=== PATIENT | female | born 1930 | race African-American/Black ===

== ENCOUNTER 2018-08-20 19:12 | Inpatient (IN) ==
[2018-08-20] MEDS ORDERED: ASPIRIN 325 MG TABLET PO STA (19:39)
[2018-08-20] MEDS ORDERED: ENOXAPARIN 80 MG/0.8 ML SYRINGE SUBCUT STA (21:43)
[2018-08-20 22:02] LABS: Albumin 2.9 G/DL (3.4-5.0); Bilirubin,Total 0.5 MG/DL (0.2-1.0); Calcium 8.9 MG/DL (8.5-10.1); Osmolality,Calculated 282.3 MOS/KG (273-304); Potassium 3.5 MMOL/L (3.5-5.1); Total Protein 6.5 G/DL (6.4-8.3)
[2018-08-20 22:15] LABS: Basophils % 0.5 % (0.0-0.8); Eosinophils # 0.1 10*3/uL (0.0-0.87); Eosinophils % 0.6 % (0.00-10.9); Hematocrit 43.7 VOL% (35.7-47.0); Hemoglobin 14.3 GM/DL (12.0-16.0); Immature Granulocytes % 0.8 %; Immature Granulocytes Absolute 0.07 #; Lymphocytes # 1.6 10*3/uL (1.4-4.0); Lymphocytes % 19.2 % (21.3-54.2); Mean Corpuscular HGB Conc 32.7 GM/DL (32-36); Mean Corpuscular Hemoglobin 29 PG (27-34); Mean Corpuscular Volume 87.9 FL (87-102); Mean Platelet Volume 9.8 FL (9.6-12.0); Monocytes # 0.8 10*3/uL (0.11-0.8); Monocytes % 9.6 % (1.7-12.7); Neutrophils # 5.7 10*3/uL (1.4-7.4); Neutrophils % 69.3 % (38.7-73.9); Platelet Count 359 T/CUMM (130-400); Red Blood Count 4.97 MC/CUMM (3.8-5.5); Red Cell Distribution Width 14.4 % (9.3-17.3); White Blood Count 8.3 T/CUMM (4-12)
[2018-08-20 22:41] LABS: INR 1.1; PT Patient Result 11.4 SECS; Partial Thromboplastin Time 25.3 SECS (0-40)
[2018-08-21] MEDS ORDERED: ACETAMINOPHEN 325 MG TABLET PO PRN (00:24)
[2018-08-21] MEDS ORDERED: DEXTROSE 50% 25 GM/50 ML SYRINGE IV PRN (00:24)
[2018-08-21] MEDS ORDERED: DOCUSATE SODIUM 100 MG CAPSULE PO PRN (00:24)
[2018-08-21] MEDS ORDERED: diphenhydrAMINE CAP 25 MG CAPSULE PO PRN (00:24)
[2018-08-21] MEDS ORDERED: GLUCAGON 1 MG VIAL IM PRN (00:24)
[2018-08-21] MEDS ORDERED: MAGNESIUM SULF RIDER 2 GM in PREMIX 1 EACH IV PRN (00:24)
[2018-08-21] MEDS ORDERED: MORPHINE 4 MG/1 ML VIAL IV PRN (00:24)
[2018-08-21] MEDS ORDERED: ONDANSETRON 4 MG/2 ML VIAL IV PRN (00:24)
[2018-08-21] MEDS ORDERED: MAGNESIUM SULF RIDER 4 GM in PREMIX 1 EACH IV PRN (00:24)
[2018-08-21] MEDS ORDERED: METOPROLOL TARTRATE 5 MG/5 ML VIAL IV ONE ×2 (00:30→04:05)
[2018-08-21] MEDS: SODIUM CHLORIDE 0.9% 1,000 ML IV SCH (01:16)
[2018-08-21 05:19] LABS: Basophils # 0.1 10*3/uL (0.0-0.2); Basophils % 0.8 % (0.0-0.8); Eosinophils # 0.1 10*3/uL (0.0-0.87); Eosinophils % 1.1 % (0.00-10.9); Hematocrit 42.2 VOL% (35.7-47.0); Hemoglobin 13.2 GM/DL (12.0-16.0); Immature Granulocytes % 0.4 %; Immature Granulocytes Absolute 0.03 #; Lymphocytes # 1.6 10*3/uL (1.4-4.0); Lymphocytes % 22.1 % (21.3-54.2); Mean Corpuscular HGB Conc 31.3 GM/DL (32-36); Mean Corpuscular Hemoglobin 28 PG (27-34); Mean Corpuscular Volume 88.8 FL (87-102); Mean Platelet Volume 9.7 FL (9.6-12.0); Monocytes # 0.7 10*3/uL (0.11-0.8); Monocytes % 9.1 % (1.7-12.7); Neutrophils # 4.7 10*3/uL (1.4-7.4); Neutrophils % 66.5 % (38.7-73.9); Platelet Count 356 T/CUMM (130-400); Red Blood Count 4.75 MC/CUMM (3.8-5.5); Red Cell Distribution Width 14.1 % (9.3-17.3); White Blood Count 7.1 T/CUMM (4-12)
[2018-08-21 06:09] LABS: Calcium 8.8 MG/DL (8.5-10.1); Osmolality,Calculated 282.4 MOS/KG (273-304); Potassium 3.3 MMOL/L (3.5-5.1); Risk Ratio 3.08; Thyroid Stimulating Hormone 1.35 uIU/ml (0.358-3.74); VLDL CHOLESTEROL 16.4 MG/DL
[2018-08-21] MEDS ORDERED: POTASSIUM CHLORIDE 20 MEQ TABLET PO PRN (07:51)
[2018-08-21] MEDS: ATORVASTATIN 40 MG TABLET PO SCH (08:34)
[2018-08-21] MEDS: PANTOPRAZOLE 40 MG TABLET PO SCH (08:34)
[2018-08-21] MEDS: ASPIRIN EC 81 MG TABLET PO SCH (08:34)
[2018-08-21] MEDS: INSULIN REGULAR 100 UNIT/ML SUBCUT SCH ×4 (08:35→21:08)
[2018-08-21] MEDS: METOPROLOL TARTRATE 25 MG TABLET PO SCH ×2 (08:41→21:08)
[2018-08-21] MEDS: ENOXAPARIN 80 MG/0.8 ML SYRINGE SUBCUT SCH ×2 (13:15→22:00)
[2018-08-21] MEDS ORDERED: DIGOXIN 0.5 MG/2 ML AMP IV ONE (15:38)
[2018-08-21] MEDS ORDERED: ENOXAPARIN 80 MG/0.8 ML SYRINGE SUBCUT SCH (21:00)
[2018-08-21] MEDS: traMADol 50 MG TABLET PO SCH (21:08)
[2018-08-21] MEDS: GABAPENTIN 100 MG CAPSULE PO SCH (21:08)
[2018-08-21] MEDS: clonazePAM 0.5 MG TABLET PO SCH (21:08)
[2018-08-22 05:37] LABS: Basophils # 0.1 10*3/uL (0.0-0.2); Basophils % 1.1 % (0.0-0.8); Eosinophils # 0.1 10*3/uL (0.0-0.87); Hematocrit 42.5 VOL% (35.7-47.0); Hemoglobin 13.4 GM/DL (12.0-16.0); Immature Granulocytes % 0.6 %; Immature Granulocytes Absolute 0.05 #; Lymphocytes % 24.2 % (21.3-54.2); Mean Corpuscular HGB Conc 31.5 GM/DL (32-36); Mean Corpuscular Hemoglobin 28 PG (27-34); Mean Platelet Volume 9.9 FL (9.6-12.0); Monocytes # 0.8 10*3/uL (0.11-0.8); Monocytes % 9.8 % (1.7-12.7); Neutrophils # 5.3 10*3/uL (1.4-7.4); Neutrophils % 63.3 % (38.7-73.9); Platelet Count 375 T/CUMM (130-400); Red Blood Count 4.72 MC/CUMM (3.8-5.5); Red Cell Distribution Width 14.1 % (9.3-17.3); White Blood Count 8.3 T/CUMM (4-12)
[2018-08-22 06:03] LABS: Calcium 8.5 MG/DL (8.5-10.1); Osmolality,Calculated 282.1 MOS/KG (273-304)
[2018-08-22] MEDS ORDERED: POTASSIUM CHLORIDE 10 MEQ TABLET PO SCH (09:00)
[2018-08-22] MEDS ORDERED: METOPROLOL TARTRATE 50 MG TABLET PO SCH (09:53)
[2018-08-22] MEDS: PANTOPRAZOLE 40 MG TABLET PO SCH (10:46)
[2018-08-22] MEDS: FUROSEMIDE 40 MG TABLET PO SCH (10:46)
[2018-08-22] MEDS: MAGNESIUM OXIDE 400 MG TABLET PO SCH (10:46)
[2018-08-22] MEDS: clonazePAM 0.5 MG TABLET PO SCH ×2 (10:47→21:11)
[2018-08-22] MEDS: GABAPENTIN 100 MG CAPSULE PO SCH ×2 (10:47→21:11)
[2018-08-22] MEDS: ASPIRIN EC 81 MG TABLET PO SCH (10:47)
[2018-08-22] MEDS: POTASSIUM CHLORIDE 20 MEQ TABLET PO SCH (10:48)
[2018-08-22] MEDS: ATORVASTATIN 40 MG TABLET PO SCH (10:48)
[2018-08-22] MEDS: CETIRIZINE 10 MG TABLET PO SCH (10:48)
[2018-08-22] MEDS: traMADol 50 MG TABLET PO SCH ×2 (10:49→21:11)
[2018-08-22] MEDS: ASCORBIC ACID 500 MG TABLET PO SCH ×2 (10:52→21:11)
[2018-08-22] MEDS: ENOXAPARIN 80 MG/0.8 ML SYRINGE SUBCUT SCH ×2 (10:52→22:04)
[2018-08-22] MEDS: INSULIN REGULAR 100 UNIT/ML SUBCUT SCH ×4 (13:24→20:53)
[2018-08-22] MEDS ORDERED: METOPROLOL TARTRATE 25 MG TABLET PO ONE (15:55)
[2018-08-22] MEDS: METOPROLOL TARTRATE 25 MG TABLET PO SCH (19:22)
[2018-08-22] MEDS: SODIUM CHLORIDE 0.9% 1,000 ML IV SCH (19:23)
[2018-08-22] MEDS ORDERED: METOPROLOL TARTRATE 50 MG TABLET PO ONE (23:55)
[2018-08-23 06:18] LABS: Basophils # 0.1 10*3/uL (0.0-0.2); Eosinophils # 0.1 10*3/uL (0.0-0.87); Eosinophils % 1.4 % (0.00-10.9); Hematocrit 43.4 VOL% (35.7-47.0); Hemoglobin 13.7 GM/DL (12.0-16.0); Immature Granulocytes % 0.6 %; Immature Granulocytes Absolute 0.04 #; Lymphocytes # 1.8 10*3/uL (1.4-4.0); Lymphocytes % 25.2 % (21.3-54.2); Mean Corpuscular HGB Conc 31.6 GM/DL (32-36); Mean Corpuscular Hemoglobin 28 PG (27-34); Monocytes # 0.7 10*3/uL (0.11-0.8); Monocytes % 10.2 % (1.7-12.7); Neutrophils # 4.4 10*3/uL (1.4-7.4); Neutrophils % 61.6 % (38.7-73.9); Red Blood Count 4.82 MC/CUMM (3.8-5.5); Red Cell Distribution Width 14.3 % (9.3-17.3); White Blood Count 7.1 T/CUMM (4-12)
[2018-08-23 06:21] LABS: Platelet Count 216 T/CUMM (130-400)
[2018-08-23 06:30] LABS: Calcium 8.2 MG/DL (8.5-10.1); Osmolality,Calculated 279.7 MOS/KG (273-304); Potassium 4.1 MMOL/L (3.5-5.1)
[2018-08-23] MEDS: clonazePAM 0.5 MG TABLET PO SCH ×2 (08:32→21:52)
[2018-08-23] MEDS: FUROSEMIDE 40 MG TABLET PO SCH (08:32)
[2018-08-23] MEDS: GABAPENTIN 100 MG CAPSULE PO SCH ×2 (08:32→21:52)
[2018-08-23] MEDS: traMADol 50 MG TABLET PO SCH ×2 (08:34→21:53)
[2018-08-23] MEDS: ASCORBIC ACID 500 MG TABLET PO SCH ×2 (08:34→21:52)
[2018-08-23] MEDS: ATORVASTATIN 40 MG TABLET PO SCH (08:34)
[2018-08-23] MEDS: ASPIRIN EC 81 MG TABLET PO SCH (08:34)
[2018-08-23] MEDS: CETIRIZINE 10 MG TABLET PO SCH (08:34)
[2018-08-23] MEDS: POTASSIUM CHLORIDE 20 MEQ TABLET PO SCH (08:34)
[2018-08-23] MEDS: MAGNESIUM OXIDE 400 MG TABLET PO SCH (08:34)
[2018-08-23] MEDS: PANTOPRAZOLE 40 MG TABLET PO SCH (08:35)
[2018-08-23] MEDS: INSULIN REGULAR 100 UNIT/ML SUBCUT SCH ×4 (08:35→21:51)
[2018-08-23] MEDS: METOPROLOL TARTRATE 50 MG TABLET PO SCH ×2 (08:35→21:53)
[2018-08-23] MEDS: ENOXAPARIN 80 MG/0.8 ML SYRINGE SUBCUT SCH (10:05)
[2018-08-23] MEDS ORDERED: METOPROLOL TARTRATE 5 MG/5 ML VIAL IV ONE (13:15)
[2018-08-23] MEDS: DILTIAZEM CD 180 MG CAPSULE PO SCH (13:39)
[2018-08-23] MEDS ORDERED: DIGOXIN 0.5 MG/2 ML AMP IV ONE (15:20)
[2018-08-23] MEDS: APIXABAN 5 MG TABLET PO SCH (21:53)
[2018-08-24 04:18] LABS: Basophils # 0.1 10*3/uL (0.0-0.2); Eosinophils # 0.1 10*3/uL (0.0-0.87); Eosinophils % 1.6 % (0.00-10.9); Hematocrit 42.3 VOL% (35.7-47.0); Hemoglobin 13.5 GM/DL (12.0-16.0); Immature Granulocytes % 0.6 %; Immature Granulocytes Absolute 0.05 #; Lymphocytes # 1.7 10*3/uL (1.4-4.0); Lymphocytes % 21.9 % (21.3-54.2); Mean Corpuscular HGB Conc 31.9 GM/DL (32-36); Mean Corpuscular Hemoglobin 29 PG (27-34); Mean Corpuscular Volume 89.8 FL (87-102); Mean Platelet Volume 9.7 FL (9.6-12.0); Monocytes # 0.8 10*3/uL (0.11-0.8); Monocytes % 10.5 % (1.7-12.7); Neutrophils % 64.4 % (38.7-73.9); Platelet Count 380 T/CUMM (130-400); Red Blood Count 4.71 MC/CUMM (3.8-5.5); Red Cell Distribution Width 14.1 % (9.3-17.3); White Blood Count 7.7 T/CUMM (4-12)
[2018-08-24 04:35] LABS: Calcium 8.6 MG/DL (8.5-10.1); Osmolality,Calculated 283.3 MOS/KG (273-304); Potassium 4.1 MMOL/L (3.5-5.1)
[2018-08-24 04:36] LABS: Calcium 8.5 MG/DL (8.5-10.1); Osmolality,Calculated 283.3 MOS/KG (273-304); Potassium 3.7 MMOL/L (3.5-5.1)
[2018-08-24] MEDS ORDERED: MAGNESIUM SULF RIDER 2 GM in PREMIX 1 EACH IV PRN (07:14)
[2018-08-24] MEDS ORDERED: MAGNESIUM SULF RIDER 4 GM in PREMIX 1 EACH IV PRN (07:14)
[2018-08-24] MEDS: MAGNESIUM OXIDE 400 MG TABLET PO SCH (09:36)
[2018-08-24] MEDS: ASCORBIC ACID 500 MG TABLET PO SCH (09:36)
[2018-08-24] MEDS: ATORVASTATIN 40 MG TABLET PO SCH (09:37)
[2018-08-24] MEDS: FUROSEMIDE 40 MG TABLET PO SCH (09:37)
[2018-08-24] MEDS: GABAPENTIN 100 MG CAPSULE PO SCH (09:37)
[2018-08-24] MEDS: POTASSIUM CHLORIDE 20 MEQ TABLET PO SCH (09:37)
[2018-08-24] MEDS: METOPROLOL TARTRATE 50 MG TABLET PO SCH (09:38)
[2018-08-24] MEDS: PANTOPRAZOLE 40 MG TABLET PO SCH (09:39)
[2018-08-24] MEDS: APIXABAN 5 MG TABLET PO SCH (09:39)
[2018-08-24] MEDS: INSULIN REGULAR 100 UNIT/ML SUBCUT SCH ×2 (09:39→14:49)
[2018-08-24] MEDS: CETIRIZINE 10 MG TABLET PO SCH (09:39)
[2018-08-24] MEDS: clonazePAM 0.5 MG TABLET PO SCH (09:40)
[2018-08-24] MEDS: ASPIRIN EC 81 MG TABLET PO SCH (09:40)
[2018-08-24] MEDS: traMADol 50 MG TABLET PO SCH (09:40)
[2018-08-24] MEDS: DILTIAZEM CD 180 MG CAPSULE PO SCH (11:23)
[2018-08-24] MEDS ORDERED: DIGOXIN 0.125 MG TABLET PO SCH (13:00)
[2018-08-24 16:04] VITALS: BP 151/87
== END 2018-08-24 16:46 | disposition home health service (06) | DRG 310 ==
LOC: N.ED 19:12 → N.EDINP 22:46 → N.TELES 08-21 00:03
PROVIDERS: ADMIT Internal Medicine; ATTEND Internal Medicine